=== PATIENT | male | born 1960 | race Hispanic/Latino ===

== ENCOUNTER 2018-05-10 12:31 | Outpatient (CLI) | payer BC ==
--- NOTE | 2018-05-10 17:18 | NM ---
NUCLEAR MEDICINE HEPATOBILIARY SCAN WITH EJECTION FRACTION: Date: 05/10/18 HISTORY: 58-year-old male with history of epigastric pain. FINDINGS: Patient was injected with 5.2 mCi technetium-99m mebrofenin intravenously. There was uptake of the tr acer by the liver with excretion into the biliary tree and gallbladder. At the 60 minute time interva l, the patient was given 8 oz of Ensure PO, with a normal gallbladder ejection fraction of 72%. IMPRESSION: Normal nuclear medicine hepatobiliary scan and ejection fraction. POS: [facility]
== END 2018-05-10 12:32 | disposition home or self-care (01) ==
LOC: NM 12:31
PROVIDERS: ATTEND Family Medicine
DX: R10.13 Epigastric pain (principal)
CPT/HCPCS: 78227; A9537

== ENCOUNTER 2018-06-17 10:54 | Outpatient (CLI) | payer BC ==
--- NOTE | 2018-06-17 12:54 | CT ---
CT OF THE ABDOMEN AND PELVIS WITH CONTRAST: COMPARISON: Hepatobiliary scan 05/10/2018. HISTORY: Upper abdominal pain for weeks. TECHNIQUE: Multiple contiguous axial images were obtained in a CT of the abdomen and pelvis with contrast. Mehrdad nal reformats were performed. P.o. contrast was administered. FINDINGS: The liver, gallbladder, kidneys, adrenal glands, spleen, and pancreas are unremarkable. No free air, free fluid, or stranding changes are seen in the abdomen or pelvis. Scattered diverticula are seen in the colon. The small bowel is unremarkable. No appendix is defini tely visualized. No abdominal or pelvic lymphadenopathy are seen. Atherosclerotic calcifications are seen in the aort a. Degenerative changes are seen in the spine. The visualized inferior thorax and abdominal wall soft t issues are unremarkable. IMPRESSION: No evidence of acute intraabdominal/pelvic abnormality. POS: [facility]
[2018-06-17] MEDS ORDERED: ISOVUE-370 76%-LOCM 1 ML ONE (13:17)
== END 2018-06-17 10:55 | disposition home or self-care (01) ==
LOC: BICCT 10:54
PROVIDERS: ATTEND Internal Medicine Gastroenterology
DX: R10.10 Upper abdominal pain, unspecified (principal)
CPT/HCPCS: 74177

== ENCOUNTER 2021-07-31 10:56 | Outpatient (CLI) | payer BC | END 2021-07-31 10:57 | disposition home or self-care (01) | LOC: RAD 10:56 | PROVIDERS: ATTEND Internal Medicine Critical Care Medicine | DX: R06.00 Dyspnea, unspecified (principal) | CPT/HCPCS: 71046 ==

== ENCOUNTER 2021-11-17 07:24 | Emergency (ER) | payer BC ==
[2021-11-17] MEDS ORDERED: Dexamethasone 10 MG/ML VIAL ONE (07:49)
[2021-11-17] MEDS ORDERED: Morphine 4 MG/ML VIAL ONE (07:49)
== END 2021-11-17 10:05 | disposition home or self-care (01) ==
LOC: ERS 07:24
DX: M06.89 Other specified rheumatoid arthritis, multiple sites (principal); I25.10 Atherosclerotic heart disease of native coronary artery without angina pectoris; E11.9 Type 2 diabetes mellitus without complications; F17.210 Nicotine dependence, cigarettes, uncomplicated; Z79.02 Long term (current) use of antithrombotics/antiplatelets; Z79.84 Long term (current) use of oral hypoglycemic drugs; Z79.899 Other long term (current) drug therapy
CPT/HCPCS: 96374; 96375; J1100; J2270

== ENCOUNTER 2021-12-03 10:29 | Emergency (ER) | payer BC ==
[2021-12-03 10:59] LABS: #Eosinphils 0.2 thou/uL (0.0-0.7); #Lymphocytes 1.3 thou/uL (1.20-3.40); #Monocytes 0.5 thou/uL (0.11-0.59); #Neutrophils 5.1 thou/uL (1.40-6.50); %Basophils 0.6 % (0.0-1.0); %Eosinophils 2.2 % (0.0-10.0); %Lymphocytes 18.7 % (21.0-51.0); %Monocytes 7.4 % (0.0-10.0); %Neutrophils 71.1 % (42.0-75.0); Hemoglobin 7.6 g/dL (14.0-18.0); Mean Corpuscular HGB CONC 31.7 g/dL (32.0-36.0); Mean Corpuscular Hemoglobin 34.4 pg (27.0-31.0); Mean Platelet Volume 6.5 fL (7.4-10.4); Platelet Count 424 thou/uL (130-400); RBC Distribution Width 16.5 % (11.5-14.5); Red Blood Cell (RBC) Count 2.21 mill/uL (4.70-6.10); White Blood Cell (WBC) Count 7.2 thou/uL (4.8-10.8)
[2021-12-03 11:16] LABS: ALT (SGPT) 11 U/L (8-55); AST (SGOT) 18 U/L (5-34); Albumin 3.8 g/dL (3.5-5.0); Alkaline Phosphatase 136 U/L (40-110); Anion Gap 12 mmol/L (10-20); BUN (Urea Nitrogen) 13 mg/dL (8.4-25.7); Bilirubin, Total 0.4 mg/dL (0.2-1.2); Calc. Creatinine Clearance 0 mL/min (70-130); Calcium 9.1 mg/dL (7.8-10.44); Carbon Dioxide 24 mmol/L (22-29); Chloride 107 mmol/L (98-107); Globulin 2.6 g/dL (2.4-3.5); Glucose 120 mg/dL (70-105); Potassium 3.9 mmol/L (3.5-5.1); Protein, Total 6.4 g/dL (6.0-8.3); Sodium 139 mmol/L (136-145)
== END 2021-12-03 13:00 | disposition home or self-care (01) ==
LOC: ERS 10:29
DX: K92.2 Gastrointestinal hemorrhage, unspecified (principal); D64.9 Anemia, unspecified; E11.9 Type 2 diabetes mellitus without complications; I25.10 Atherosclerotic heart disease of native coronary artery without angina pectoris; M06.9 Rheumatoid arthritis, unspecified; F17.210 Nicotine dependence, cigarettes, uncomplicated; Z79.84 Long term (current) use of oral hypoglycemic drugs; Z79.899 Other long term (current) drug therapy
CPT/HCPCS: 36415; 80053; 84484; 85025; 93005; 94760

== ENCOUNTER 2021-12-18 10:57 | Outpatient (CLI) | payer BC ==
[2021-12-18 12:15] LABS: #Basophils 0.1 10x3/uL (0.0-0.2); #Eosinphils 0.2 10x3/uL (0.0-0.5); #Monocytes 0.8 10x3/uL (0.0-1.1); #Neutrophils 4.7 10x3/uL (1.5-8.4); %Basophils 1.7 % (0.0-2.0); %Eosinophils 2.5 % (0.0-6.0); %Lymphocytes 23.1 % (18.0-47.0); %Monocytes 9.9 % (0.0-10.0); %Neutrophils 61.6 % (40.0-75.0); Hemoglobin 9.3 g/dL (13.5-17.5); Mean Corpuscular HGB CONC 32.5 g/dL (32.0-36.0); Mean Corpuscular Hemoglobin 33.1 pg (27.0-33.0); Mean Corpuscular Volume 101.8 fl (81.2-95.1); Mean Platelet Volume 10.7 fl (7.4-10.4); Platelet Count 411 10x3/uL (150-450); RBC Distribution Width 17.4 % (11.5-14.5); Red Blood Cell (RBC) Count 2.81 10x6/uL (4.32-5.72); White Blood Cell (WBC) Count 7.7 10x3/uL (3.5-10.5)
[2021-12-18 12:32] LABS: Anion Gap 15 mmol/L (10-20); BUN (Urea Nitrogen) 16 mg/dL (8.4-25.7); Calc. Creatinine Clearance 0 mL/min (70-130); Calcium 9.1 mg/dL (7.8-10.44); Carbon Dioxide 25 mmol/L (22-29); Chloride 107 mmol/L (98-107); Glucose 96 mg/dL (70-105); Potassium 4.5 mmol/L (3.5-5.1); Sodium 142 mmol/L (136-145)
[2021-12-18 20:35] LABS: SARS-CoV-2 PCR by NAA Not Detected (NotDetected)
== END 2021-12-18 10:58 | disposition home or self-care (01) ==
LOC: LABBT 10:57
PROVIDERS: ATTEND Specialist
DX: Z01.812 Encounter for preprocedural laboratory examination (principal); K64.8 Other hemorrhoids; Z20.822 Contact with and (suspected) exposure to COVID-19
CPT/HCPCS: 80048; 85025; U0003; U0005

== ENCOUNTER 2021-12-20 07:38 | Day surgery (SDC) | payer BC ==
[2021-12-19 12:30] VITALS: BMI 26.9
[2021-12-20] MEDS ORDERED: Acetaminophen 500 MG TAB ONE (08:12)
[2021-12-20] MEDS ORDERED: Ketorolac Tromethamine 30 MG/ML VIAL ONE ×2 (08:12→09:59)
[2021-12-20] MEDS ORDERED: Levofloxacin 500 mg/D5W 100 ml Premix Bag ONE (08:12)
[2021-12-20] MEDS ORDERED: Meropenem 2 GM in Sodium Chloride 0.9% 100 ML IVPB SCH (08:30)
[2021-12-20] MEDS ORDERED: Bupivacaine PF 0.5% 30 ML VIAL ONE (09:50)
[2021-12-20] MEDS ORDERED: Lidocaine 1% w/Epinephrine 1:100K 20 ML VIAL ONE (09:50)
[2021-12-20] MEDS ORDERED: Lidocaine 2% Jelly 5 ML TUBE ONE (09:50)
[2021-12-20] MEDS ORDERED: fentaNYL Citrate/PF 100 MCG/2 ML SYRINGE ONE ×2 (09:52→09:53)
[2021-12-20] MEDS ORDERED: PROPOFOL 200 MG/20 ML VIAL ONE (09:59)
[2021-12-20] MEDS ORDERED: Glycopyrrolate 0.2 MG/ML 5 ML SYRINGE ONE (09:59)
[2021-12-20] MEDS ORDERED: Rocuronium Bromide 10 MG/ML (10ML VIAL) ONE (09:59)
[2021-12-20] MEDS ORDERED: Lidocaine 1% PF 5 ML VIAL ONE (09:59)
[2021-12-20] MEDS ORDERED: Dexamethasone 20 MG/5 ML VIAL ONE (09:59)
[2021-12-20] MEDS ORDERED: Ondansetron PF 4 MG/2 ML Vial ONE (09:59)
[2021-12-20] MEDS ORDERED: HYDROmorphone 0.5 MG/0.5 ML SYRINGE ONE (10:03)
[2021-12-20] MEDS ORDERED: Meperidine HCl/PF 25 MG/ML VIAL ONE (11:54)
[2021-12-20] MEDS ORDERED: HYDROcodone/Acetaminophen 5/325 mg Tablet ONE ×2 (13:24→16:35)
[2021-12-20] MEDS ORDERED: Tamsulosin HCl 0.4 MG CAP ONE (16:36)
== END 2021-12-20 18:03 | disposition home or self-care (01) ==
LOC: SDC 07:38
PROVIDERS: ATTEND Specialist
PROC: 06BY3ZC Excision of Hemorrhoidal Plexus, Percutaneous Approach (ICD-10-PCS; principal; 2021-12-20)
DX: K64.8 Other hemorrhoids (principal); K64.4 Residual hemorrhoidal skin tags; D50.0 Iron deficiency anemia secondary to blood loss (chronic); I25.10 Atherosclerotic heart disease of native coronary artery without angina pectoris; E11.51 Type 2 diabetes mellitus with diabetic peripheral angiopathy without gangrene; E11.22 Type 2 diabetes mellitus with diabetic chronic kidney disease; N18.9 Chronic kidney disease, unspecified; L40.50 Arthropathic psoriasis, unspecified; M06.9 Rheumatoid arthritis, unspecified; Z87.891 Personal history of nicotine dependence; Z79.02 Long term (current) use of antithrombotics/antiplatelets; Z79.84 Long term (current) use of oral hypoglycemic drugs; Z79.899 Other long term (current) drug therapy; Z88.0 Allergy status to penicillin; Z88.2 Allergy status to sulfonamides; Z88.8 Allergy status to other drugs, medicaments and biological substances
CPT/HCPCS: 88304; J1100; J1170; J1885; J1956; J2175; J2185; J2405; J2704; J3490; S0020

== ENCOUNTER 2021-12-26 14:27 | Outpatient (CLI) | payer BC | END 2021-12-26 14:28 | disposition home or self-care (01) | LOC: BICRAD 14:27 | PROVIDERS: ATTEND Internal Medicine Rheumatology | DX: M81.0 Age-related osteoporosis without current pathological fracture (principal); M47.814 Spondylosis without myelopathy or radiculopathy, thoracic region | CPT/HCPCS: 72072 ==

== ENCOUNTER 2022-02-03 11:28 | Outpatient (CLI) | payer BC | END 2022-02-03 11:29 | disposition home or self-care (01) | LOC: RAD 11:28 | PROVIDERS: ATTEND Internal Medicine Rheumatology | DX: M25.551 Pain in right hip (principal) ==

== ENCOUNTER 2022-03-06 12:30 | Outpatient (CLI) | payer BC | END 2022-03-06 12:31 | disposition home or self-care (01) | LOC: PET 12:30 | PROVIDERS: ATTEND Internal Medicine Hematology & Oncology | DX: C90.00 Multiple myeloma not having achieved remission (principal); D47.2 Monoclonal gammopathy | CPT/HCPCS: 78816; A9552 ==

== ENCOUNTER 2022-03-28 15:58 | Day surgery (SDC) | payer BC ==
[2022-03-28] MEDS ORDERED: Acetaminophen 500 MG TAB ONE (16:51)
[2022-03-28] MEDS ORDERED: diphenhydrAMINE 25 MG CAP ONE (16:51)
[2022-03-28] MEDS ORDERED: diphenhydrAMINE 25 MG CAP PO SCH (17:00)
[2022-03-28] MEDS ORDERED: Acetaminophen 500 MG TAB PO SCH (17:00)
[2022-03-28 19:47] VITALS: TEMP 97.7
[2022-03-28 20:39] LABS: #Lymphocytes 0.5 thou/uL (1.20-3.40); #Monocytes 0.1 thou/uL (0.11-0.59); %Eosinophils 0.2 % (0.0-10.0); %Lymphocytes 13.8 % (21.0-51.0); %Monocytes 1.7 % (0.0-10.0); %Neutrophils 84.3 % (42.0-75.0); Hemoglobin 8.1 g/dL (14.0-18.0); Mean Corpuscular HGB CONC 32.7 g/dL (32.0-36.0); Mean Corpuscular Hemoglobin 33.5 pg (27.0-31.0); Mean Platelet Volume 7.6 fL (7.4-10.4); Platelet Count 364 thou/uL (130-400); Red Blood Cell (RBC) Count 2.42 mill/uL (4.70-6.10); White Blood Cell (WBC) Count 3.6 thou/uL (4.8-10.8)
== END 2022-03-28 20:20 | disposition home or self-care (01) ==
LOC: SDC/OP 15:58 → T4-B 16:01 → SDC/OP 20:20
PROVIDERS: ATTEND Internal Medicine Hematology & Oncology
DX: D47.2 Monoclonal gammopathy (principal); Z88.0 Allergy status to penicillin; Z88.2 Allergy status to sulfonamides; Z88.8 Allergy status to other drugs, medicaments and biological substances
CPT/HCPCS: 36415; 36430; 80053; 82248; 83615; 84100; 84550; 85025; 86850; 86900; 86901; P9016

== ENCOUNTER 2023-06-18 08:41 | Outpatient (CLI) | payer BC | END 2023-06-18 08:42 | disposition home or self-care (01) | LOC: BICMAMMO 08:41 | PROVIDERS: ATTEND Internal Medicine Rheumatology | DX: M81.0 Age-related osteoporosis without current pathological fracture (principal); M85.89 Other specified disorders of bone density and structure, multiple sites | CPT/HCPCS: 77080 ==

== ENCOUNTER 2024-08-30 11:15 | Outpatient (CLI) | payer BC | END 2024-08-30 11:16 | disposition home or self-care (01) | LOC: BICMAMMO 11:15 | PROVIDERS: ATTEND Internal Medicine Rheumatology | DX: M81.0 Age-related osteoporosis without current pathological fracture (principal); M85.89 Other specified disorders of bone density and structure, multiple sites | CPT/HCPCS: 77080 ==

== ENCOUNTER 2025-06-13 11:56 | Outpatient (CLI) | payer BC | END 2025-06-13 11:57 | disposition home or self-care (01) | LOC: BICRAD 11:56 | PROVIDERS: ATTEND Internal Medicine Rheumatology | DX: M70.72 Other bursitis of hip, left hip (principal); M16.12 Unilateral primary osteoarthritis, left hip ==